=== PATIENT | female | born 1965 | race African-American/Black ===

== ENCOUNTER → 2016-10-05 | Outpatient (CLI) | payer OTHER, BC ==
--- NOTE | 2016-10-08 11:55 | MM ---
Reason for exam: screening (asymptomatic). Last mammogram was performed 2 years and 1 month ago. History: Patient is postmenopausal. Physical Findings: A clinical breast exam by your physician is recommended on an annual basis and results should be correlated with mammographic findings. MG Screening Mammo w CAD Bilateral CC and MLO view(s) were taken. Prior study comparison: September 16, 2014, bilateral MG screening mammo w CAD. There are scattered fibroglandular densities. There is chronic nodularity in the right breast. No significant changes when compared with prior studies. ASSESSMENT: Benign, BI-RAD 2 RECOMMENDATION: Routine screening mammogram of both breasts in 1 year.
== END | disposition home or self-care (01) ==
LOC: RADMAMWWP 12:59
PROVIDERS: ATTEND Family Medicine
DX: Z12.31 Encounter for screening mammogram for malignant neoplasm of breast (principal)

== ENCOUNTER → 2019-09-10 | Outpatient (CLI) | payer BC, OTHER ==
--- NOTE | 2019-09-10 17:30 | CONS ---
CONSULTATION DATE OF SERVICE: 09/10/2019 An 84-year-old lady who has been evaluated in the [facility] for possible obstructive sleep apnea-hypopnea syndrome. HISTORY OF PRESENT ILLNESS/SLEEP-WAKE EVALUATION: Patient's usual sleep schedule from 9 p.m. until 6:15 a.m. on weekdays and from 10 p.m. until 9 -10 a.m. on weekends. Sometimes she has some problems with falling asleep. Has TV set in bedroom. She sleeps in different positions. She has been told that she snores. She wakes up from sleep up to 6 times with one episode of nocturia. Also, the patient wakes up from sleep with the presence of choking, palpitation and sweating. In the morning, patient wakes up tired, worries about her sleep, has problems with memory and irritability. [place] Sleepiness Scale is 9. PAST MEDICAL HISTORY: Hypertension, hyperlipidemia. PAST SURGICAL HISTORY: Tubal ligation, appendectomy. MEDICATIONS: Chlorthalidone, atorvastatin, metoprolol. SOCIAL HISTORY: Positive for smoking about 1/3 pack a day for 24 years. No alcohol consumption. REVIEW OF SYSTEMS: Difficulties to initiate sleep, multiple awakenings from sleep. Episodes of sleepiness during the day. PHYSICAL EXAM: lady without distress, BP 114/66, HR 68, RR 16, height 5 foot 1-1/2 inches, weight 195 pounds. Body mass index 36.2, temperature 98.1. Oxygen saturation at room air 97%. OROPHARYNX: Extremely low position of soft palate. Mallampati 4. NECK: 15-1/4 inches in circumference. ABDOMEN: Obese. LUNGS: Clear to percussion and to auscultation. Good air exchange. No wheezing or rhonchi. HEART: S1, S2 regular. No murmurs, gallops, or rubs. EXTREMITIES: No clubbing or cyanosis. [employer]: Awake, alert, and oriented X3. Cranial nerves 2 to 7 intact. There is no fasciculation or atrophy. noted. No focal deficits observed. IMPRESSION: 1. Snoring, multiple awakenings from sleep, low position of soft palate, episodes of tiredness and sleepiness during the day. Obstructive sleep apnea-hypopnea syndrome. 2. Obesity, body mass index 36.2. 3. Hypertension. 4. Hyperlipidemia. 5. Status post tubal ligation. 6. Status post appendectomy. PLAN: 1. Polysomnography for evaluation of patient's breathing during sleep. 2. CPAP/BiPAP titration if sleep study confirms obstructive sleep apnea-hypopnea syndrome. 3. Preferable position during sleep on the side. 4. No driving if patient feels any sleepiness. 5. I will see patient for follow up visit to explain results of testing and following plan. Thank you very much for referring this patient for consultation. Sincerely, Miguel Maya MD, PhD, FAASM Diplomat of [employer] [employer] [employer] [place] [employer] [facility] [place] MMODL / IJN: [id number] /
== END | disposition home or self-care (01) ==
LOC: SLEEP 14:06
PROVIDERS: ATTEND Internal Medicine
DX: G47.33 Obstructive sleep apnea (adult) (pediatric) (principal); E66.9 Obesity, unspecified; Z68.36 Body mass index [BMI] 36.0-36.9, adult; I10 Essential (primary) hypertension; E78.5 Hyperlipidemia, unspecified; Z98.51 Tubal ligation status; F17.210 Nicotine dependence, cigarettes, uncomplicated; Z90.49 Acquired absence of other specified parts of digestive tract; Z79.899 Other long term (current) drug therapy
CPT/HCPCS: 99211

== ENCOUNTER → 2021-03-22 | Outpatient (CLI) | payer OTHER ==
--- NOTE | 2021-03-22 16:17 | XR ---
Right forearm and right wrist HISTORY: Trauma and pain 2 views of the right forearm, 4 views of the right wrist Bone mineralization, joint spaces and alignment are maintained, sclerosis present in the proximal taisha e of the scaphoid. Arthropathy present at the carpometacarpal joint. IMPRESSION: No fracture or dislocation.
== END | disposition home or self-care (01) ==
LOC: RADXRMAIN 14:50
PROVIDERS: ATTEND Emergency Medicine
DX: M25.531 Pain in right wrist (principal); M79.631 Pain in right forearm; S69.91XA Unspecified injury of right wrist, hand and finger(s), initial encounter; S59.911A Unspecified injury of right forearm, initial encounter

== ENCOUNTER → 2021-04-03 | Outpatient (CLI) | payer OTHER ==
--- NOTE | 2021-04-03 16:14 | XR ---
EXAMINATION TYPE: XR wrist complete RT DATE OF EXAM: 04/03/2021 COMPARISON: 03/22/2021 HISTORY: 55 year-old female S60.211D TECHNIQUE: 4 views FINDINGS: Moderate to severe degenerative joint space narrowing with marginal spurring and subchondral sclerosi s at the first CMC joint. Mild degenerative change at the triscaphe joint with joint space narrowing. The radiocarpal and distal radial ulnar joint as well as the midcarpal compartment appear intact. No acute fracture, subluxation, or dislocation seen. There is some sclerosis at the proximal pole of th e scaphoid likely representing a bone island, unchanged from prior. IMPRESSION: 1. 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 Mild at the triscaphe joint. 2. Some sclerosis at the proximal pole of the scaphoid likely represents an underlying bone island. 3. No acute osseous abnormality is otherwise seen. If there is focal pain at the anatomic snuff box o r otherwise concern for an occult osseous injury, MRI can be considered.
== END | disposition home or self-care (01) ==
LOC: RADXRMAIN 15:42
PROVIDERS: ATTEND Emergency Medicine
DX: M18.11 Unilateral primary osteoarthritis of first carpometacarpal joint, right hand (principal); M25.831 Other specified joint disorders, right wrist

== ENCOUNTER 2021-08-02 13:45 | Emergency (ER) | payer BC, OTHER ==
[2021-08-02 13:53] VITALS: PULSE 66
[2021-08-02] MEDS ORDERED: ONDANSETRON 4 MG ODT STARTER PACK 2 TAB BTL PO STA (14:17)
[2021-08-02] MEDS ORDERED: DIPHENOX-ATROP STARTER PACK 8 TAB BTL PO STA (14:17)
[2021-08-02 15:16] LABS: Basophils % (A) 0 %; Eosinophils # (A) 0.2 k/uL (0-0.7); Eosinophils % (A) 2 %; HCT 38.3 % (34.0-46.0); HGB 12.7 gm/dL (11.4-16.0); Lymphocytes % (A) 34 %; MCH 27.6 pg (25.0-35.0); MCHC 33.2 g/dL (31.0-37.0); MCV 83.1 fL (80.0-100.0); Mean Platelet Volume 8.8; Monocytes # (A) 0.4 k/uL (0-1.0); Monocytes % (A) 5 %; Neutrophils # (A) 4.9 k/uL (1.3-7.7); Neutrophils % (A) 56 %; Platelet Count 332 k/uL (150-450); RBC 4.61 m/uL (3.80-5.40); RDW 13.7 % (11.5-15.5); WBC 8.8 k/uL (3.8-10.6)
[2021-08-02 15:18] VITALS: RESP 16
[2021-08-02 15:25] LABS: Albumin 4.7 g/dL (3.5-5.0); Calcium 9.9 mg/dL (8.4-10.2); Magnesium 2.3 mg/dL (1.6-2.3); Potassium 3.6 mmol/L (3.5-5.1); Total Bilirubin 0.5 mg/dL (0.2-1.3); Total Protein 7.9 g/dL (6.3-8.2)
--- NOTE | 2021-08-02 15:26 | XR ---
EXAMINATION TYPE: XR chest 2V DATE OF EXAM: 08/02/2021 COMPARISON: NONE TECHNIQUE: PA and lateral views submitted. HISTORY: Dizziness FINDINGS: The lungs are clear and there is no pneumothorax, pleural effusion, or focal pneumonia. Heart size normal. No overt failure. Calcification along the left humeral head can be associated with calcific t endinosis. IMPRESSION: 1. No acute process.
[2021-08-02 15:28] LABS: INR 0.9 (<1.2); Partial Thromboplastin Time 22.6 sec (22.0-30.0); Prothrombin Time 9.6 sec (9.0-12.0)
[2021-08-02 15:29] LABS: Appearance,Urine Clear (Clear); Bilirubin,Urine Negative (Negative); Blood,Urine Negative (Negative); Color,Urine Yellow; Glucose,Urine (UA) 4+ (Negative); Ketones,Urine Negative (Negative); Leukocyte Esterase,Urine Negative (Negative); Nitrite,Urine Negative (Negative); Protein,Urine Negative (Negative); Specific Gravity,Urine 1.024 (1.001-1.035); Urobilinogen,Urine <2.0 mg/dL (<2.0)
--- NOTE | 2021-08-02 15:47 | ED ---
General Adult HPI - General Chief complaint: Dizziness Stated complaint: Dizzy Time Seen by Provider: 08/02/21 13:55 Source: patient, RN notes reviewed, old records reviewed Mode of arrival: ambulatory Limitations: no limitations - History of Present Illness Initial comments: This is a 56-year-old female complaining of dizziness. Patient states it star oumar yesterday. Patient states he feels like he needs to hold onto something when she is walking. Patient denies any chest pain or palpitations. Patient denies shortness of breath or difficulty breathing. Patient states the dizziness seems to make her nauseated. Patient denies any abdominal pain. Patient denies any vomiting. Patient denies any recent fever chills or cough. Patient states she is up-to-date on her vaccinations and boosters. Patient states movement seems to make the dizziness worse. - Related Data Previous Rx's Medication Instructions Recorded HYDROcodone/APAP 5-325MG [[place] 5] 1 - 2 each PO Q6HR PRN #40 tab 08/08/14 Meclizine [Antivert] 25 mg PO TID #20 tab 08/02/21 Allergies Allergy/AdvReac Type Severity Reaction Status Date / Time No Known Allergies Allergy Verified 08/02/21 13:53 Review of Systems ROS Statement: Those systems with pertinent positive or pertinent negative responses have been documented in the HPI. ROS Other: All systems not noted in ROS Statement are negative. Past Medical History Past Medical History: Diabetes Mellitus, Hyperlipidemia, Hypertension History of Any Multi-Drug Resistant Organisms: None Reported Past Surgical History: Tubal Ligation Additional Past Surgical History / Comment(s): laparoscopy, dental, pt states "Eight teeth pulled" Past Anesthesia/Blood Transfusion Reactions: No Reported Reaction Past Psychological History: No Psychological Hx Reported Smoking Status: Current every day smoker Past Alcohol Use History: None Reported Past Drug Use History: None Reported - Past Family History Sister(s) Family Medical History: Diabetes Mellitus, Hypertension Additional Family Medical History / Comment(s): glaucoma Mother Family Medical History: Hypertension Father Family Medical History: Cancer General Exam - General Exam Comments Initial Comments: GENERAL: Patient is well-developed and well-nourished. Patient is nontoxic and well- hydrated and is in mild distress. ENT: Neck is soft and supple. No significant lymphadenopathy is noted. Oropharynx is clear. Moist mucous membranes. Neck has full range of motion without eliciting any pain. EYES: The sclera were anicteric and conjunctiva were pink and moist. Extraocular movements were intact and pupils were equal round and reactive to light. Eyelids were unremarkable. PULMONARY: Unlabored respirations. Good breath sounds bilaterally. No audible rales rhonchi or wheezing was noted. CARDIOVASCULAR: There is a regular rate and rhythm without any murmurs gallops or rubs. ABDOMEN: Soft and nontender with normal bowel sounds. SKIN: Skin is clear with no lesions or rashes and otherwise unremarkable. NEUROLOGIC: Patient is alert and oriented x3. Cranial nerves II through XII are grossly intact. Motor and sensory are also intact. Normal speech, volume and content. Symmetrical smile. Finger to nose testing is normal bilaterally MUSCULOSKELETAL: Normal extremities with adequate strength and full range of motion. No lower extremity swelling or edema. No calf tenderness. LYMPHATICS: No significant lymphadenopathy is noted PSYCHIATRIC: Normal psychiatric evaluation. Limitations: no limitations Course Vital Signs 08/02/21 08/02/21 13:51 15:18 Temperature 98.5 F Pulse Rate 66 66 Respiratory 20 16 Rate Blood Pressure 128/74 109/59 O2 Sat by Pulse 100 99 Oximetry Medical Decision Making - Medical Decision Making EKG shows sinus rhythm at 64 bpm [place] interval is 225 QRSs 84 Q-T intervals 416 QTC is 425. EKG shows no ST segment elevation or depression Chest x-ray shows no acute abnormality. Patient states as long she keeps her head still she has no symptoms. Patient is getting meclizine. - Lab Data Result diagrams: 08/02/21 15:00 08/02/21 15:00 Lab Results 08/02/21 08/02/21 08/02/21 Range/Units 15:00 15:00 15:00 WBC 8.8 (3.8-10.6) k/uL RBC 4.61 (3.80-5.40) m/uL Hgb 12.7 (11.4-16.0) gm/dL Hct 38.3 (34.0-46.0) % MCV 83.1 (80.0-100.0) fL MCH 27.6 (25.0-35.0) pg MCHC 33.2 (31.0-37.0) g/dL RDW 13.7 (11.5-15.5) % Plt Count 332 (150-450) k/uL MPV 8.8 Neutrophils % 56 % Lymphocytes % 34 % Monocytes % 5 % Eosinophils % 2 % Basophils % 0 % Neutrophils # 4.9 (1.3-7.7) k/uL Lymphocytes # 3.0 (1.0-4.8) k/uL Monocytes # 0.4 (0-1.0) k/uL Eosinophils # 0.2 (0-0.7) k/uL Basophils # 0.0 (0-0.2) k/uL PT 9.6 (9.0-12.0) sec INR 0.9 (<1.2) APTT 22.6 (22.0-30.0) sec Sodium (137-145) mmol/L Potassium (3.5-5.1) mmol/L Chloride (98-107) mmol/L Carbon Dioxide (22-30) mmol/L Anion Gap mmol/L BUN (7-17) mg/dL Creatinine (0.52-1.04) mg/dL Est GFR (CKD-EPI)AfAm (>60 ml/min/1.73 sqM) Est GFR (CKD-EPI)NonAf (>60 ml/min/1.73 sqM) Glucose (74-99) mg/dL Calcium (8.4-10.2) mg/dL Magnesium (1.6-2.3) mg/dL Total Bilirubin (0.2-1.3) mg/dL AST (14-36) U/L ALT (4-34) U/L Alkaline Phosphatase (38-126) U/L Troponin I (0.000-0.034) ng/mL Total Protein (6.3-8.2) g/dL Albumin (3.5-5.0) g/dL Urine Color Yellow Urine Appearance Clear (Clear) Urine pH 6.0 (5.0-8.0) Ur Specific [place] 1.024 (1.001-1.035) Urine Protein Negative (Negative) Urine Glucose (UA) 4+ H (Negative) Urine Ketones Negative (Negative) Urine Blood Negative (Negative) Urine Nitrite Negative (Negative) Urine Bilirubin Negative (Negative) Urine Urobilinogen <2.0 (<2.0) mg/dL Ur Leukocyte Esterase Negative (Negative) Coronavirus (PCR) (Not Detectd) 08/02/21 08/02/2108/02/22 Range/Units 15:00 15:00 15:00 WBC (3.8-10.6) k/uL RBC (3.80-5.40) m/uL Hgb (11.4-16.0) gm/dL Hct (34.0-46.0) % MCV (80.0-100.0) fL MCH (25.0-35.0) pg MCHC (31.0-37.0) g/dL RDW (11.5-15.5) % Plt Count (150-450) k/uL MPV Neutrophils % % Lymphocytes % % Monocytes % % Eosinophils % % Basophils % % Neutrophils # (1.3-7.7) k/uL Lymphocytes # (1.0-4.8) k/uL Monocytes # (0-1.0) k/uL Eosinophils # (0-0.7) k/uL Basophils # (0-0.2) k/uL PT (9.0-12.0) sec INR (<1.2) APTT (22.0-30.0) sec Sodium 137 (137-145) mmol/L Potassium 3.6 (3.5-5.1) mmol/L Chloride 100 (98-107) mmol/L Carbon Dioxide 31 H (22-30) mmol/L Anion Gap 6 mmol/L BUN 19 H (7-17) mg/dL Creatinine 1.05 H (0.52-1.04) mg/dL Est GFR (CKD-EPI)AfAm 68 (>60 ml/min/1.73 sqM) Est GFR (CKD-EPI)NonAf 59 (>60 ml/min/1.73 sqM) Glucose 108 H (74-99) mg/dL Calcium 9.9 (8.4-10.2) mg/dL Magnesium 2.3 (1.6-2.3) mg/dL Total Bilirubin 0.5 (0.2-1.3) mg/dL AST 28 (14-36) U/L ALT 26 (4-34) U/L Alkaline Phosphatase 123 (38-126) U/L Troponin I <0.012 (0.000-0.034) ng/mL Total Protein 7.9 (6.3-8.2) g/dL Albumin 4.7 (3.5-5.0) g/dL Urine Color Urine Appearance (Clear) Urine pH (5.0-8.0) Ur Specific [place] (1.001-1.035) Urine Protein (Negative) Urine Glucose (UA) (Negative) Urine Ketones (Negative) Urine Blood (Negative) Urine Nitrite (Negative) Urine Bilirubin (Negative) Urine Urobilinogen (<2.0) mg/dL Ur Leukocyte Esterase (Negative) Coronavirus (PCR) Not Detected (Not Detectd) Disposition Clinical Impression: Vertigo Disposition: HOME SELF-CARE Condition: Good Instructions (If sedation given, give patient instructions): Vertigo (ED) Prescriptions: Meclizine [Antivert] 25 mg PO TID #20 tab Is patient prescribed a controlled substance at d/c from ED?: No Referrals: Guanaco Pro MD [Primary Care Provider] - 1-2 days Time of Disposition: 16:11
[2021-08-02] MEDS ORDERED: MECLIZINE 25 MG TAB PO STA (16:11)
[2021-08-02 16:49] VITALS: BP 110/65; TEMP 98.6
== END 2021-08-02 16:55 | disposition home or self-care (01) ==
LOC: EC 13:45
DX: R42 Dizziness and giddiness (principal); E11.9 Type 2 diabetes mellitus without complications; I10 Essential (primary) hypertension; F17.200 Nicotine dependence, unspecified, uncomplicated; Z20.822 Contact with and (suspected) exposure to COVID-19
CPT/HCPCS: 36415; 71046; 80053; 81003; 83735; 84484; 85025; 85610; 85730; 87635; 93005; 99284